=== PATIENT | male | born 1975 | race Two or more races ===

== ENCOUNTER 2019-12-17 00:23 | Emergency (ER) | payer OTHER ==
[~2019-12-17] VITALS: Ht 180.3 cm; Wt 117.9 kg
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
[2019-12-17] MEDS ORDERED: DEXAMETHASONE SOD PHOSPHATE 10 MG/ML VIAL ONE (00:44)
[2019-12-17] MEDS ORDERED: CARISOPRODOL 350 MG TABLET ONE (00:44)
[2019-12-17] MEDS ORDERED: HYDROMORPHONE 1 MG/1 ML DISP.SYRIN ONE (00:45)
[2019-12-17] MEDS ORDERED: DEXAMETHASONE SOD PHOSPHATE 4 MG/ML VIAL IM ONE (01:00)
[2019-12-17] MEDS ORDERED: CARISOPRODOL 350 MG TABLET PO ONE (01:00)
[2019-12-17] MEDS ORDERED: HYDROMORPHONE 1 MG/1 ML DISP.SYRIN IM ONE (01:00)
--- NOTE | 2019-12-17 01:49 | NUR ---
Patient discharged to home in stable condition. Written and verbal after care instructions given. Patient verbalizes understanding of instruction and RX. PT ambulatory with a steady gait. VSS. Pt ambulated with steady gait with [employer].
[2019-12-17 01:50] VITALS: BP 138/86
== END 2019-12-17 01:51 | disposition home or self-care (01) ==
LOC: ER 00:24
DX: M54.42 Lumbago with sciatica, left side (principal); R25.2 Cramp and spasm
CPT/HCPCS: 96372 ×2; 99283; J1100; J1170